=== PATIENT | male | born 1990 | race Caucasian/White ===

== ENCOUNTER 2019-04-14 19:35 | Emergency (ER) | payer OTHER ==
[~2019-04-14] VITALS: Ht 177.8 cm; Wt 90.7 kg
[~2019-04-14 19:35] MED LIST: LEVSIN/SL0.125 MG SL; METRONIDAZOLE250 MG PO
== END 2019-04-14 23:19 | disposition home or self-care (01) ==
LOC: ER 19:35
DX: S93.401A Sprain of unspecified ligament of right ankle, initial encounter (principal); X50.0XXA Overexertion from strenuous movement or load, initial encounter; Y93.89 Activity, other specified; Y92.89 Other specified places as the place of occurrence of the external cause; Y99.8 Other external cause status

== ENCOUNTER 2020-12-06 12:17 | Emergency (ER) | payer OTHER ==
[~2020-12-06] VITALS: Ht 180.3 cm; Wt 97.5 kg
== END 2020-12-06 19:59 | disposition home or self-care (01) ==
LOC: ER 12:17
DX: L03.116 Cellulitis of left lower limb (principal)

== ENCOUNTER 2021-01-16 22:49 | Emergency (ER) | payer OTHER ==
[~2021-01-16] VITALS: Ht 182.9 cm; Wt 95.3 kg
[2021-01-17] MEDS ORDERED: INTESTINEX680 M1 PO (02:24)
[2021-01-17] MEDS ORDERED: KETO10TA2 PO (02:24)
[2021-01-17] MEDS ORDERED: BACTRIM DS TAB1 EACH PO (02:24)
== END 2021-01-17 02:32 | disposition home or self-care (01) ==
LOC: ER 22:49
DX: S80.02XA Contusion of left knee, initial encounter (principal); X58.XXXA Exposure to other specified factors, initial encounter; Y93.89 Activity, other specified; Y92.813 Airplane as the place of occurrence of the external cause; L03.90 Cellulitis, unspecified